=== PATIENT | female | born 1985 | race Two or more races ===

== ENCOUNTER → 2019-02-25 11:52 | Outpatient (CLI) | payer MEDICAID | END | disposition home or self-care (01) | LOC: D.US 11:52 | PROVIDERS: ATTEND Nurse Practitioner Women's Health | DX: R92.8 Other abnormal and inconclusive findings on diagnostic imaging of breast (principal) ==

== ENCOUNTER 2019-08-21 19:54 | Emergency (ER) | payer SELFPAY ==
[~2019-08-21] VITALS: Ht 162.6 cm; Wt 65.9 kg
[2019-08-21 20:12] VITALS: Ht 162.6 cm; Wt 65.9 kg
[2019-08-21 20:43] LABS: HCG URINE NEGATIVE (NEGATIVE)
[2019-08-21 20:46] LABS: APPEARANCE HAZY (CLEAR); BILIRUBIN NEGATIVE (NEGATIVE); COLOR YELLOW (YELLOW); GLUCOSE NEGATIVE (NEGATIVE); KETONE LARGE mg/dL (NEGATIVE); NITRITE NEGATIVE (NEGATIVE); PROTEIN 1+ mg/dL (NEGATIVE); UROBILINOGEN NORMAL (NORMAL)
[2019-08-21 20:49] LABS: BASOPHILS 0.4 % (0-2); EOSINOPHILS 0 % (0-7); HEMATOCRIT 42.2 % (36.0-48.0); HEMOGLOBIN 14.2 g/dL (12-16); IMMATURE GRANULOCYTES 0.2 % (0-5); LYMPHOCYTES 22.8 % (15-50); MCHC 33.6 g/dL (31.0-37.0); MCV 86.1 fL (80.0-100.0); MEAN PLATELET VOLUME 10.9 fL (7.4-10.4); MONOCYTES 13.3 % (2-11); NEUTROPHILS 63.3 % (40-80); PLATELET COUNT 241 10x3/uL (130-400); RDW 12.7 % (11.5-14.5); WBC 5.3 10x3/uL (4.8-10.8)
[2019-08-21 20:57] LABS: BACTERIA FEW /hpf (NEGATIVE); EPITHELIAL CELLS 0-5 /hpf (0-5); RED CELLS - URINE 0-5 /hpf (0-5); WHITE CELLS - URINE 0-5 /hpf (NEGATIVE)
[2019-08-21 21:01] LABS: CALC OSMOLALITY 272 mosm/kg (275-300); CALCIUM 8.6 mg/dL (8.5-10.1); CARBON DIOXIDE 19.1 mmol/L (21.0-32.0); CHLORIDE - SERUM 102 mmol/L (98-107); CREATININE - SERUM 0.8 mg/dL (0.6-1.3); GLUCOSE 93 mg/dL (74-106); POTASSIUM - SERUM 3.3 mmol/L (3.5-5.1); SODIUM 137 mmol/L (136-145); UREA NITROGEN 9 mg/dL (7-18); eGFR NON AFRICAN AMERICAN 87 mL/min (90-120)
[2019-08-21 21:07] LABS: ALBUMIN 3.7 g/dL (3.4-5.0); ALKALINE PHOSPHATASE 130 U/L (46-116); ALT (SGPT) 109 U/L (10-68); BILIRUBIN - TOTAL 0.48 mg/dL (0.2-1.3); LIPASE 122 U/L (73-393); PROTEIN - SERUM 7.7 g/dL (6.4-8.2)
[2019-08-21] MEDS ORDERED: ZOFRAN ODT4 MG/UDTAB PO (21:23)
[2019-08-21] MEDS ORDERED: IBUPROFEN800 MG PO (21:23)
[2019-08-21] MEDS ORDERED: TAMIFLU75 MG PO (21:23)
[2019-08-21 22:33] VITALS: BP 118/57
== END 2019-08-21 22:33 | disposition home or self-care (01) ==
LOC: D.ER 19:54
PROVIDERS: Family Medicine
DX: J11.1 Influenza due to unidentified influenza virus with other respiratory manifestations (principal); R52 Pain, unspecified; R11.2 Nausea with vomiting, unspecified

== ENCOUNTER 2019-12-03 23:11 | Emergency (ER) | payer SELFPAY ==
[~2019-12-03 23:11] MED LIST: IBUPROFEN800 MG PO; TAMIFLU75 MG PO; ZOFRAN ODT4 MG/UDTAB PO
[2019-12-03 23:49] VITALS: Ht 162.6 cm
[2019-12-04 00:06] LABS: BASOPHILS 0.3 % (0-2); EOSINOPHILS 5.6 % (0-7); HEMATOCRIT 37.8 % (36.0-48.0); IMMATURE GRANULOCYTES 0.2 % (0-5); LYMPHOCYTES 28.8 % (15-50); MCH 25.9 pg (26.0-34.0); MCHC 31.7 g/dL (31.0-37.0); MCV 81.5 fL (80.0-100.0); MEAN PLATELET VOLUME 10.9 fL (7.4-10.4); MONOCYTES 6.5 % (2-11); NEUTROPHILS 58.6 % (40-80); RBC 4.64 10x6/uL (4.00-5.40); RDW 14.2 % (11.5-14.5)
[2019-12-04 00:07] LABS: PLATELET COUNT 341 10x3/uL (130-400)
[2019-12-04 00:13] LABS: CALC OSMOLALITY 276 mosm/kg (275-300); CALCIUM 9.1 mg/dL (8.5-10.1); CARBON DIOXIDE 24.8 mmol/L (21.0-32.0); CHLORIDE - SERUM 101 mmol/L (98-107); CREATININE - SERUM 0.6 mg/dL (0.6-1.3); GLUCOSE 101 mg/dL (74-106); POTASSIUM - SERUM 3.4 mmol/L (3.5-5.1); SODIUM 138 mmol/L (136-145); UREA NITROGEN 14 mg/dL (7-18); eGFR NON AFRICAN AMERICAN > 90 mL/min (90-120)
[2019-12-04 00:16] LABS: BILIRUBIN NEGATIVE (NEGATIVE); GLUCOSE NEGATIVE (NEGATIVE); HCG URINE NEGATIVE (NEGATIVE); KETONE MODERATE mg/dL (NEGATIVE); NITRITE NEGATIVE (NEGATIVE); UROBILINOGEN NORMAL (NORMAL)
[2019-12-04 00:23] LABS: ALKALINE PHOSPHATASE 115 U/L (30-120); ALT (SGPT) 43 U/L (10-68); BILIRUBIN - TOTAL 1.18 mg/dL (0.2-1.3); LIPASE 123 U/L (73-393); PROTEIN - SERUM 8.1 g/dL (6.4-8.2)
[2019-12-04 00:24] LABS: TROPONIN-I < 0.017 ng/mL (0.000-0.060)
[2019-12-04 00:54] LABS: UDS - AMPHET NEGATIVE QUAL (NEGATIVE); UDS - BARB NEGATIVE QUAL (NEGATIVE); UDS - BENZO NEGATIVE QUAL (NEGATIVE); UDS - COCAINE NEGATIVE QUAL (NEGATIVE); UDS - OPIATE NEGATIVE QUAL (NEGATIVE); UDS - PCP NEGATIVE QUAL (NEGATIVE); UDS - THC NEGATIVE QUAL (NEGATIVE)
[2019-12-04] MEDS ORDERED: OMEPRAZOLE20 M1 PO (02:35)
[2019-12-04 02:44] VITALS: BP 139/100
== END 2019-12-04 02:44 | disposition home or self-care (01) ==
LOC: D.ER 23:11
PROVIDERS: Family Medicine
DX: R10.9 Unspecified abdominal pain (principal); R07.9 Chest pain, unspecified; R91.1 Solitary pulmonary nodule; R11.0 Nausea

== ENCOUNTER 2020-01-13 21:49 | Observation (INO) | payer SELFPAY ==
[~2020-01-13] VITALS: Ht 162.6 cm; Wt 68.0 kg
--- NOTE | ~2020-01-13 | OP ---
PATIENT NAME: ANNIE BECKER MEDICAL RECORD: [id number] LOCATION:[id number] ADMISSION DATE:01/14/20 SURGEON: JG KAY MD DATE OF OPERATION: 01/14/2020 PREOPERATIVE DIAGNOSIS: Acute appendicitis with localized peritonitis. POSTOPERATIVE DIAGNOSIS: Acute appendicitis with localized peritonitis. PROCEDURE: Laparoscopic appendectomy. SURGEON: Jg Kay MD REPORT OF PROCEDURE: The patient's abdomen was prepped and draped in sterile fashion. A skin incision was made on the superior aspect of the umbilicus, 0 Vicryls were placed in the fascia bilaterally and the fascia was incised with 15-blade. I then bluntly entered the peritoneal cavity and placed a 12-mm Paul port. Under direct visualization, a 5 mm trocar was placed in the left lower quadrant and another was placed in the suprapubic region. The patient had some scarring in the pelvis what appeared to be a previous section. The fundus of the uterus was adherent to the anterior abdominal wall. This was protected throughout our trocar placement. We were able to visualize the patient's appendix, which was acutely inflamed with no signs of necrosis or perforation. We dissected out the base of the appendix as it entered the cecum. There was inflammation through the entire length of the appendix up to its base. We made a window in the mesoappendix and transected the mesoappendix with a 45 white load Endo-MAURICE stapler. The base of the appendix was then transected with a 45 blue load Endo-MAURICE stapler. We inspected the staple lines, I could see there was no sign of any bleeding or leakage. The appendix was placed into an Endo Catch bag and then removed through the umbilicus. We irrigated out the abdomen with normal saline. At this point, we then removed the ports and insufflation. The umbilical fascia was closed with interrupted 0 Vicryls times 3. The wound was then irrigated out with normal saline and infused with 10 mL of 0.25% Marcaine with epinephrine. The skin incisions were all closed with subcutaneous 5-0 Monocryl and dressed appropriately. COMPLICATIONS: None. CONDITION: Stable. ANESTHESIA: General endotracheal and local. BLOOD LOSS: Minimal. TRANSINT:[id number] Voice Confirmation ID: [id number] DOCUMENT ID: [id number] JG KAY MD CC: [id number] DICTATION DATE: 01/14/20 1455 MEDIA SALES EXECUTIVE: 01/15/20 0010 DIS IN 01/14/20 [facility] [address] [id number]
[~2020-01-13 21:49] MED LIST changes: +OMEPRAZOLE20 M1 PO
--- NOTE | 2020-01-13 21:58 | NUR ---
CALLED FOR PATIENT IN THE WR, SCREENER ADVISED THAT THE PATIENT WAS IN THE BATHROOM, NOTIFIED THE PIPE BENDING MACHINE OPERATOR TO DIRECT THE PATIENT TO A ROOM WHEN THEY CAOME OUT OF THE BATHROOM.
[2020-01-13 22:18] LABS: BASOPHILS 0.1 % (0-2); CALC OSMOLALITY 268 mosm/kg (275-300); CALCIUM 9.1 mg/dL (8.5-10.1); CHLORIDE - SERUM 100 mmol/L (98-107); CREATININE - SERUM 0.8 mg/dL (0.6-1.3); EOSINOPHILS 0.6 % (0-7); GLUCOSE 115 mg/dL (74-106); HEMATOCRIT 39.3 % (36.0-48.0); HEMOGLOBIN 12.3 g/dL (12-16); IMMATURE GRANULOCYTES 0.3 % (0-5); LYMPHOCYTES 8.9 % (15-50); MCH 24.3 pg (26.0-34.0); MCHC 31.3 g/dL (31.0-37.0); MCV 77.7 fL (80.0-100.0); MEAN PLATELET VOLUME 10.3 fL (7.4-10.4); MONOCYTES 5.3 % (2-11); NEUTROPHILS 84.8 % (40-80); PLATELET COUNT 370 10x3/uL (130-400); POTASSIUM - SERUM 3.4 mmol/L (3.5-5.1); RBC 5.06 10x6/uL (4.00-5.40); RDW 14.8 % (11.5-14.5); SODIUM 134 mmol/L (136-145); UREA NITROGEN 12 mg/dL (7-18); WBC 17.5 10x3/uL (4.8-10.8); eGFR NON AFRICAN AMERICAN 87 mL/min (90-120)
[2020-01-13 22:24] LABS: ALBUMIN 4.2 g/dL (3.4-5.0); ALKALINE PHOSPHATASE 118 U/L (30-120); ALT (SGPT) 33 U/L (10-68); AMYLASE - SERUM 48 U/L (25-115); BILIRUBIN - TOTAL 1.04 mg/dL (0.2-1.3); LIPASE 79 U/L (73-393); MAGNESIUM - SERUM 2.2 mg/dL (1.8-2.4); PROTEIN - SERUM 8.7 g/dL (6.4-8.2)
[2020-01-13 22:26] LABS: HCG SERUM NEGATIVE (NEGATIVE)
[2020-01-13 22:36] LABS: BILIRUBIN NEGATIVE (NEGATIVE); GLUCOSE NEGATIVE (NEGATIVE); KETONE LARGE mg/dL (NEGATIVE); NITRITE NEGATIVE (NEGATIVE); SPECIFIC GRAVITY 1.025 (1.005-1.020); UROBILINOGEN NORMAL (NORMAL)
[2020-01-13 22:37] LABS: BACTERIA FEW /hpf (NEGATIVE); RED CELLS - URINE 0-5 /hpf (0-5); WHITE CELLS - URINE 0-5 /hpf (NEGATIVE)
--- NOTE | 2020-01-13 22:44 | NUR ---
PT TO RADIOLOGY.
--- NOTE | 2020-01-13 23:02 | NUR ---
PT RETURNED FROM RADIOLOGY.
[2020-01-13 23:46] LABS: APTT 30.9 SECONDS (22.8-39.4); INR 1.05 (0.85-1.17); PROTIME 13.6 SECONDS (11.6-15.0)
--- NOTE | 2020-01-14 00:05 | NUR ---
PT AMBULATED TO RESTROOM INDEPENDENTLY.
[2020-01-14] MEDS ORDERED: ACETAMINOPHEN325 MG PO (01:03)
[2020-01-14 01:04] VITALS: BP 128/59; BMI 25.8
[2020-01-14] MEDS ORDERED: MULTI-DAY VITAM1 TAB PO (01:04)
[2020-01-14 04:00] VITALS: BP 113/80
[2020-01-14 06:48] LABS: BASOPHILS 0.1 % (0-2); EOSINOPHILS 4.4 % (0-7); HEMATOCRIT 33.6 % (36.0-48.0); HEMOGLOBIN 10.5 g/dL (12-16); IMMATURE GRANULOCYTES 0.2 % (0-5); LYMPHOCYTES 14.4 % (15-50); MCH 24.4 pg (26.0-34.0); MCHC 31.3 g/dL (31.0-37.0); MCV 78.1 fL (80.0-100.0); MEAN PLATELET VOLUME 10.7 fL (7.4-10.4); MONOCYTES 7.2 % (2-11); NEUTROPHILS 73.7 % (40-80); PLATELET COUNT 320 10x3/uL (130-400); RDW 15.1 % (11.5-14.5); WBC 14.5 10x3/uL (4.8-10.8)
[2020-01-14 07:01] LABS: ALBUMIN 3.2 g/dL (3.4-5.0); ALKALINE PHOSPHATASE 86 U/L (30-120); ALT (SGPT) 27 U/L (10-68); BILIRUBIN - TOTAL 1.21 mg/dL (0.2-1.3); CALCIUM 8.2 mg/dL (8.5-10.1); CARBON DIOXIDE 23.2 mmol/L (21.0-32.0); CHLORIDE - SERUM 103 mmol/L (98-107); CREATININE - SERUM 0.6 mg/dL (0.6-1.3); GLUCOSE 101 mg/dL (74-106); POTASSIUM - SERUM 3.2 mmol/L (3.5-5.1); PROTEIN - SERUM 6.8 g/dL (6.4-8.2); SODIUM 135 mmol/L (136-145); eGFR NON AFRICAN AMERICAN > 90 mL/min (90-120)
[2020-01-14 07:06] LABS: CALC OSMOLALITY 267 mosm/kg (275-300); UREA NITROGEN 8 mg/dL (7-18)
[2020-01-14 08:00] VITALS: BP 131/86
--- NOTE | 2020-01-14 09:00 | NUR ---
ALERT AND ORIENTED X4 WITH HERE TO ASSSIST WITH TRANSLATION. CONSCENTS SIGNED RLQ ABDOMINAL PAIN NOTED WITH BOWEL SOUNDS NOTED X4. DENIES ANY PAIN OR DISCOMFORT AT THIS TIME. ENCOURAGED TO USE CALL LIGHT FOR ASSIST.
[2020-01-14 13:09] VITALS: Ht 162.6 cm; Wt 68.0 kg
--- NOTE | 2020-01-14 13:47 | NUR ---
PATIENT PREOPPED AND SENT TO SURGERY. STABLE AT TIME OF DEPARTURE
[2020-01-14] MEDS ORDERED: HYDROCODON-ACE1 EA10 PO (14:50)
[2020-01-14 15:47] VITALS: BP 131/80
--- NOTE | 2020-01-14 15:51 | NUR ---
PATIENT RECEIVED BACK TO ROOM AND EASY TO AROUSE. BANDAGES INTACT TO ABDOMEN.
[2020-01-14] MEDS ORDERED: ULTRAM50 MG PO (16:23)
--- NOTE | 2020-01-14 18:00 | NUR ---
PATIENT VOIDED AND TOLERATED DINNER WELL
--- NOTE | 2020-01-14 18:35 | NUR ---
IV DISCONTINUED AND VERBALIZED UNDERSTANDING OF DISCHARGE INSTRUCTIONS. STABLE AT TIME OF DEPARTURE.
== END 2020-01-14 18:35 | disposition home or self-care (01) ==
LOC: D.ER 21:49 → D.MS 01-14 00:01 → OBSVTIME 01-14 00:01 → D.MS 01-14 00:01
PROVIDERS: Family Medicine; ADMIT Surgery; ATTEND Surgery
DX: K35.30 Acute appendicitis with localized peritonitis, without perforation or gangrene (principal)

== ENCOUNTER 2020-02-08 23:19 | Emergency (ER) | payer SELFPAY ==
[~2020-02-08] VITALS: Ht 162.6 cm; Wt 68.3 kg
[~2020-02-08 23:19] MED LIST changes: +ACETAMINOPHEN325 MG PO; +HYDROCODON-ACE1 EA10 PO; +MULTI-DAY VITAM1 TAB PO; +ULTRAM50 MG PO
[2020-02-08 23:23] VITALS: Ht 162.6 cm; Wt 68.3 kg
[2020-02-08 23:59] LABS: HEMATOCRIT 37.2 % (36.0-48.0); HEMOGLOBIN 11.6 g/dL (12-16); LYMPHOCYTES 28.3 % (15-50); MCHC 31.2 g/dL (31.0-37.0); MCV 76.9 fL (80.0-100.0); MEAN PLATELET VOLUME 10.7 fL (7.4-10.4); PLATELET COUNT 296 10x3/uL (130-400); RBC 4.84 10x6/uL (4.00-5.40); RDW 16.2 % (11.5-14.5); WBC 10.7 10x3/uL (4.8-10.8)
[2020-02-09 00:09] LABS: BILIRUBIN NEGATIVE (NEGATIVE); GLUCOSE NEGATIVE (NEGATIVE); KETONE NEGATIVE (NEGATIVE); NITRITE NEGATIVE (NEGATIVE); SPECIFIC GRAVITY 1.005 (1.005-1.020); UROBILINOGEN NORMAL (NORMAL)
[2020-02-09 00:11] LABS: BACTERIA FEW /hpf (NEGATIVE); EPITHELIAL CELLS 0-5 /hpf (0-5); RED CELLS - URINE 0-5 /hpf (0-5); WHITE CELLS - URINE NSEEN /hpf (NEGATIVE)
[2020-02-09 00:17] LABS: CALC OSMOLALITY 267 mosm/kg (275-300); CALCIUM 8.8 mg/dL (8.5-10.1); CHLORIDE - SERUM 103 mmol/L (98-107); CREATININE - SERUM 0.7 mg/dL (0.6-1.3); GLUCOSE 88 mg/dL (74-106); POTASSIUM - SERUM 4.2 mmol/L (3.5-5.1); SODIUM 135 mmol/L (136-145); UREA NITROGEN 11 mg/dL (7-18); eGFR NON AFRICAN AMERICAN > 90 mL/min (90-120)
[2020-02-09 00:53] LABS: ALBUMIN 3.8 g/dL (3.4-5.0); ALKALINE PHOSPHATASE 93 U/L (30-120); ALT (SGPT) 35 U/L (10-68); BILIRUBIN - TOTAL 0.56 mg/dL (0.2-1.3); HCG - QUANTITATIVE (MATERNAL) 50220 mIU/mL; PROTEIN - SERUM 7.9 g/dL (6.4-8.2)
[2020-02-09 02:53] VITALS: BP 112/83
== END 2020-02-09 03:28 | disposition home or self-care (01) ==
LOC: D.ER 23:19
PROVIDERS: Family Medicine
DX: O20.0 Threatened abortion (principal); Z3A.01 Less than 8 weeks gestation of pregnancy; R10.30 Lower abdominal pain, unspecified; N93.9 Abnormal uterine and vaginal bleeding, unspecified

== ENCOUNTER 2020-03-11 17:07 | Emergency (ER) | payer MEDICAID ==
[~2020-03-11] VITALS: Ht 162.6 cm; Wt 68.2 kg
[2020-03-11 17:29] VITALS: Ht 162.6 cm; Wt 68.2 kg
[2020-03-11 17:57] LABS: BASOPHILS 0.2 % (0-2); EOSINOPHILS 7.8 % (0-7); HEMATOCRIT 40.6 % (36.0-48.0); HEMOGLOBIN 13.1 g/dL (12-16); IMMATURE GRANULOCYTES 0.3 % (0-5); LYMPHOCYTES 24.8 % (15-50); MCH 24.3 pg (26.0-34.0); MCHC 32.3 g/dL (31.0-37.0); MCV 75.5 fL (80.0-100.0); MEAN PLATELET VOLUME 10.8 fL (7.4-10.4); NEUTROPHILS 59.9 % (40-80); PLATELET COUNT 338 10x3/uL (130-400); RBC 5.38 10x6/uL (4.00-5.40); RDW 17.1 % (11.5-14.5); WBC 12.5 10x3/uL (4.8-10.8)
[2020-03-11 18:03] LABS: BILIRUBIN NEGATIVE (NEGATIVE); GLUCOSE NEGATIVE (NEGATIVE); KETONE NEGATIVE (NEGATIVE); NITRITE NEGATIVE (NEGATIVE); UROBILINOGEN NORMAL (NORMAL)
[2020-03-11 18:04] LABS: CALC OSMOLALITY 262 mosm/kg (275-300); CALCIUM 9.6 mg/dL (8.5-10.1); CARBON DIOXIDE 24.7 mmol/L (21.0-32.0); CHLORIDE - SERUM 100 mmol/L (98-107); CREATININE - SERUM 0.7 mg/dL (0.6-1.3); GLUCOSE 91 mg/dL (74-106); POTASSIUM - SERUM 3.5 mmol/L (3.5-5.1); SODIUM 132 mmol/L (136-145); UREA NITROGEN 8 mg/dL (7-18); eGFR NON AFRICAN AMERICAN > 90 mL/min (90-120)
[2020-03-11 18:08] LABS: BACTERIA MODERATE /hpf (NEGATIVE); RED CELLS - URINE 0-5 /hpf (0-5); WHITE CELLS - URINE 0-5 /hpf (NEGATIVE)
[2020-03-11 18:13] LABS: ALBUMIN 3.6 g/dL (3.4-5.0); ALKALINE PHOSPHATASE 99 U/L (30-120); ALT (SGPT) 34 U/L (10-68); AMYLASE - SERUM 66 U/L (25-115); BILIRUBIN - TOTAL 0.76 mg/dL (0.2-1.3); LIPASE 126 U/L (73-393); PROTEIN - SERUM 8.4 g/dL (6.4-8.2)
[2020-03-11 18:33] LABS: TROPONIN-I < 0.017 ng/mL (0.000-0.060)
[2020-03-11] MEDS ORDERED: MACROBID100 MG PO (20:11)
[2020-03-11 20:43] VITALS: BP 131/83
== END 2020-03-11 20:44 | disposition home or self-care (01) ==
LOC: D.ER 17:07
PROVIDERS: Emergency Medicine
DX: O26.891 Other specified pregnancy related conditions, first trimester (principal); Z3A.10 10 weeks gestation of pregnancy; R10.9 Unspecified abdominal pain; R82.71 Bacteriuria

== ENCOUNTER 2020-03-16 12:06 | Observation (INO) | payer MEDICAID ==
[~2020-03-16] VITALS: Ht 162.6 cm; Wt 67.6 kg
[~2020-03-16 12:06] MED LIST changes: +MACROBID100 MG PO
--- NOTE | 2020-03-16 15:20 | NUR ---
SL STARTED X 2 ATTEMPTS. SUCCESSFUL TO LEFT HAND WITH 10 GAUGE CATHELON. BANANA BAG UP AT 125 ML/HR. SITE CLEAR. PT MARIEL WELL.
--- NOTE | 2020-03-16 15:30 | NUR ---
ROUNDING WITH PATIENT. IV FLUIDS STARTED. IV IN LEFT HAND. SITE WNL. ORIENTATED PATIENT TO ROOM. POTTY HAT PLACED IN BATHROOM WITH INSTRUCTIONS ON OUTPUT. PATIENT DENIES NEEDS AT THIS TIME. CALL LIGHT IN REACH, SIDE RAILS UP X 2.
--- NOTE | 2020-03-16 15:55 | NUR ---
ADMISSION ASSESSMENT COMPLETE. SEE FLOW SHEET. PATIENT REQUESTED [employer] TRANSLATE ON PHONE BE USED WHEN SHE IS UNABLE TO UNDERSTAND. VSS. DENIES PAIN OR NAUSEA AT THIS TIME. CALL LIGHT IN REACH, SIDE RAILS UP X2. PATIENT DENIES NEEDS AT THIS TIME.
[2020-03-16 16:07] VITALS: BP 120/92
--- NOTE | 2020-03-16 16:30 | NUR ---
ROUNDING ON PATIENT. PATIENT TALKING ON PHONE AND DENIES NEEDS AT THIS TIME. CALL LIGHT IN REACH, SIDE RAILS UP X 2.
[2020-03-16 16:39] VITALS: BP 137/93; BMI 25.6
--- NOTE | 2020-03-16 17:34 | NUR ---
ROUNDING WITH PATIENT. REGLAN AND PROTONIX GIVEN PER ORDER. EDUCATION GIVEN TO PATIENT ON BOTH MEDICATIONS PRIOR TO IV PUSH. PATIENT TOLERATED MEDS. DENIES ANY NEEDS AT THIS TIME. CALL LIGHT IN REACH, SIDE RAILS UP X2.
--- NOTE | 2020-03-16 17:35 | NUR ---
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 STATES SHE FEELS REALLY HOT. VSS TEMP 98.8F, BLOOD PRESSURE 129/73, RESP 20 AND HR 108. TEMP IN ROOM SET AT 80 DEGREES, TURNED THERMOSTAT DOWN TO 65. PATIENT LAYING IN BED WITHOUT BLANKETS. PATIENT DENIES ANY CHEST PAIN, FEELING LIKE HER HEART IS RACING, FEELING FLUSHED OR ANY SHORTNESS OF BREATH. STATES SHE FEELS LIKE THE ROOM IS TO HOT. WILL CONTINUE TO MONITOR. CALL LIGHT IN REACH, SIDE RAILS UP X 2.
--- NOTE | 2020-03-16 17:50 | NUR ---
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 PATIENT STATES HAD BOWEL MOVMENT BUT DID NOT URINATE. POTTY HAT EMPTY. SOCKS GIVEN TO PATIENT TO WEAR WHEN UP. EDUCATION PROVIDED TO HER ON SOCKS. PATIENT STATES SHE FEELS BETTER AND FEELS LIKE SHE IS COOLING OFF. DENIES NEEDS AT THIS TIME. CALL LIGHT IN REACH, SIDE RAILS UP X 2.
--- NOTE | 2020-03-16 18:33 | NUR ---
ROUNDING WITH PATIENT. REQUESTED BLINDS CLOSED. DENIES NAY NEEDS AT THIS TIME. CALL LIGHT IN REACH, SIDE RAILS UP X2.
[2020-03-16 19:25] VITALS: BP 116/79
--- NOTE | 2020-03-16 19:25 | NUR ---
ASSESSMENT PER FLOW SHEET, VS OBTAINED, IV IN LEFT HAND INTACT WITH NO REDNESS OR EDEMA INFUSING VIA PUMP BANANA BAG AT 125 ML/HR, SEE EMAR, S/O IN ROOM AT THIS TIME TO TRANSLATE, PT KNOWS SOME YEMENI, PT REPORTS FLATUS, BM, BUT REPORTS SHE HAS NOT VOIDED YET, PT INST TO USE CALL LIGHT WHEN NEEDING ASSISTANCE TO GET UP, PT VERBALIZES UNDERSTANDING, PT DENIES ANY NAUSEA OR VOMITING, PT INST ON NPO, PT DENIES NEEDS OR PAIN AT THIS TIME, S/O REPORTS THAT HE WILL NOT BE STAYING BECAUSE HE NEEDED TO HOME BECAUSE OF THE OTHER CHILDREN
--- NOTE | 2020-03-16 20:35 | NUR ---
PT RESTING WITH EYES CLOSED, RESP QUIET, NO DISTRESS NOTED, LEFT UNDISTURBED AT THIS TIME
--- NOTE | 2020-03-16 21:42 | NUR ---
PT GAME TRAPPER LIGHT, PT REQUESTED AND PROVIDED TOOTHBRUSH AND TOOTHPASTE, PT UP TO SINK PER SELF, GAIT STEADY, PT DENIES ANY NAUSEA OR PAIN, DENIES FURTHER NEEDS
--- NOTE | 2020-03-16 22:18 | NUR ---
PT BACK IN BED AT THIS TIME RESTING
--- NOTE | 2020-03-16 23:57 | NUR ---
BANANA BAG FINISHED INFUSING, NS HUNG FOR KVO, PT UP AND VOIDED 150 MLS OF DARK YELLOW URINE BY SELF WITH NO DIFFICULTY, PT DENIES NEEDS, N/V, OR PAIN AT THIS TIME
--- NOTE | 2020-03-17 00:30 | NUR ---
PT RESTING WITH EYES CLOSED, RESP QUIET, NO DISTRESS NOTED, LEFT UNDISTURBED AT THIS TIME
[2020-03-17 01:36] VITALS: BP 129/90
--- NOTE | 2020-03-17 01:36 | NUR ---
PT AWAKE, REPORTS FEELING NAUSEATED, PT DID NOT VOMIT, JUST GAGGED AND SPIT ALITTLE, ADM JOEL SENIOR PER MD ORDERS, SEE EMAR, PT REPORTS VOIDING, EMPTIED 100MLS OF DARK YELLOW URINE FROM MAINE HAT, PT DENIES NEEDS
--- NOTE | 2020-03-17 02:33 | NUR ---
PT RESTING WITH EYES CLOSED, RESP QUIET, NO DISTRESS NOTED, LEFT UNDISTURBED AT THIS TIME
[2020-03-17 04:21] VITALS: BP 118/81
--- NOTE | 2020-03-17 04:21 | NUR ---
PT RESTING WITH EYES CLOSED, AROUSES TO SOFT VERBAL STIMULATION, VS OBTAINED, PUMP CLEARED, PT DENIES PAIN, OR N/V
--- NOTE | 2020-03-17 06:23 | NUR ---
PT AWAKE, REQUESTS SOMETHING TO EAT, INFORMED PT TO LET DR CARTAGENA KNOW WHEN SHE MAKES HER ROUNDS, OR, IF SHE DOESN'T COME THIS MORNING, I WILL HAVE THE DAY SHIFT NURSE CALL HER OFFICE, PT VERBALIZES UNDERSTANDING AND GIVES ME A THUMBS UP, PT DENIES FURTHER NEEDS
--- NOTE | 2020-03-17 07:30 | NUR ---
ROUNDING WITH PATIENT. PATIENT DENIES NAUSEA OR PAIN AT THIS TIME. REQUESTING TO EAT. NURSE WILL TALK TO DR. CARTAGENA WHEN SHE MAKES ROUNDS. PATIENT DENIES ANY FURTHER NEEDS. WHITE BOARD UPDATED WITH DATE AND NURSES NAME. CALL LIGHT IN REACH, SIDE RAILS UP X 2.
[2020-03-17 07:41] VITALS: BP 141/94
--- NOTE | 2020-03-17 08:00 | NUR ---
ASSESSMENT COMPLETE. VSS. IV LEFT HAND WNL. PATIENT DENIES NAUSEA OR PAIN AT THIS TIME. CALL LIGHT IN REACH, SIDE RAILS UP X 2.
--- NOTE | 2020-03-17 08:35 | NUR ---
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 STATES SHE IS HUNGRY AND WOULD LIKE TO EAT. DR. CARTAGENA ON FLOOR AND NOTIFIED. DR CARTAGENA ALSO NOTIFIED ON PATIENTS BLOOD PRESSURE THIS AM. SHE WILL BE ROUNDING IN A FEW MINUTES. CALL LIGHT IN REACH, SIDE RAILS UP X2. IN ROOM.
--- NOTE | 2020-03-17 08:44 | NUR ---
DR CARTAGENA ROUNDKAMALJIT REQUESTING CALL WITH NEXT BLOOD PRESSURE.
--- NOTE | 2020-03-17 09:13 | NUR ---
ROUNDING WITH PATIENT. PATIENT DIET ADVANCED TO CLEAR LIQUID. PATIENT SITTING UP DRINKING CLEAR LIQUID. EDUCATED PATIENT ON CLEAR LIQUID DIET AND IMPORTANCE OF STARTING SLOW. PATIENT VERBALIZED UNDERSTANDING. IN ROOM TRANSLATING. PATIENT DENIES ANY NEEDS AT THIS TIME. CALL LIGHT IN REACH, SIDE RAILS UP X 2.
--- NOTE | 2020-03-17 09:32 | NUR ---
REGLAN GIVEN IVP. PATIENT TOLERATED WELL. PATIENT TOLERATING CLEAR LIQUIDS AT THIS TIME. DENIES NEEDS. CALL LIGHT IN REACH, SIDE RAILS UP X2. IN ROOM.
--- NOTE | 2020-03-17 10:54 | NUR ---
ROUNDING WITH PATIENT. PATIENT RESTING IN BED. DENIES NAUSEA OR NEEDS AT THIS TIME. CALL LIGHT IN REACH, SIDE RAILS UP X2.
--- NOTE | 2020-03-17 12:06 | NUR ---
ROUNDING WITH PATIENT. PATIENT DENIES NAUSEA. VOIDED 300CC DARK YELLOW URINE. PATIENT TOLERATING LIQUIDS REQUESTING TO HAVE FOOD. WILL ASK DR CARTAGENA WHEN CALLING HER WITH BLOOD PRESSURE. CALL LIGHT IN REACH. SIDE RAILS UP X2. PATIENT SITTING UP IN BED DRINKING CLEAR LIQUIDS.
[2020-03-17 12:45] VITALS: BP 135/101
--- NOTE | 2020-03-17 12:50 | NUR ---
DR CARTAGENA CALLED WITH UPDATED BLOOD PRESSURE AND CONTINUED C/O NAUSEA. 135/[address] CARTAGENA WILL PL[address] ORDER FOR PO BLOOD PRESSURE MEDICATIONS AND CHANGE REGLAN TO EVERY 6 HOURS.
[2020-03-17 13:59] VITALS: Ht 162.6 cm; Wt 67.6 kg
--- NOTE | 2020-03-17 14:00 | NUR ---
ROUNDING WITH PATIENT. AT BEDSIDE TO TRANSLATE. REGLAN GIVE IVP. PATIENT TOLERATED WELL. EDUCATION PROVIDED ON THE NORMODYNEL/TRANDATE 100MG TAB. PATIENT STATES HER BLOOD PRESSURE IS HIGH DUE TO NOT EATING. IF SHE COULD HAVE SOME FOOD SHE WOULD FEEL BETTER AND HER BLOOD PRESSURE WILL GO DOWN. SHE STATES SHE KNOWS HER BODY AND KNOWS THAT FOOD WILL MAKE IT BETTER. OFFERED TO CALL DR CARTAGENA TO SEE IF WE COULD GET AN ADVANCE DIET ORDER.
--- NOTE | 2020-03-17 14:05 | NUR ---
DR DEY CALLED. OK TO ADVANCE TO BRAT DIET. ORDER PLACED IN COMPUTER. PATIENT TO TRY BRAT DIET AND RECHECK BLOOD PRESSURE THIS AFTERNOON. IF BLOOD PRESSURE CONTINUES TO BE ELEVATED RECOMMENDS TO TAKE BLOOD PRESSURE MEDICINE.
--- NOTE | 2020-03-17 14:10 | NUR ---
PATIENT AND UPDATED ON DR ESPINOZA ORDER FOR BRAT DIET AND IF ELEVATED BLOOD PRESSURE CONTINUES TO TAKE BLOOD PRESSURE MEDICATION. AND PATIENT EDUCATED ON BRAT DIET AND BOTH VERBALIZED UNDERSTANDING. WILL RECHECK BLOOD PRESSURE AT 4PM. UA COLLECTED AND SENT TO LAB. PATIENT DENIES ANY FURTHER NEEDS AT THIS TIME. CALL LIGHT IN REACH, SIDE RAILS UP X 2.
[2020-03-17 14:32] LABS: BILIRUBIN NEGATIVE (NEGATIVE); GLUCOSE NEGATIVE (NEGATIVE); KETONE MODERATE mg/dL (NEGATIVE); NITRITE NEGATIVE (NEGATIVE); UROBILINOGEN NORMAL (NORMAL)
[2020-03-17 14:35] LABS: BASOPHILS 0.3 % (0-2); EOSINOPHILS 6.3 % (0-7); HEMATOCRIT 34.6 % (36.0-48.0); HEMOGLOBIN 11.3 g/dL (12-16); IMMATURE GRANULOCYTES 0.2 % (0-5); LYMPHOCYTES 31.1 % (15-50); MCH 24.5 pg (26.0-34.0); MCHC 32.7 g/dL (31.0-37.0); MCV 74.9 fL (80.0-100.0); MEAN PLATELET VOLUME 10.4 fL (7.4-10.4); MONOCYTES 5.3 % (2-11); NEUTROPHILS 56.8 % (40-80); PLATELET COUNT 294 10x3/uL (130-400); RBC 4.62 10x6/uL (4.00-5.40); RDW 17.2 % (11.5-14.5); WBC 9.6 10x3/uL (4.8-10.8)
[2020-03-17 14:50] LABS: ALKALINE PHOSPHATASE 92 U/L (30-120); ALT (SGPT) 26 U/L (10-68); BILIRUBIN - TOTAL 0.65 mg/dL (0.2-1.3); CALC OSMOLALITY 266 mosm/kg (275-300); CALCIUM 8.5 mg/dL (8.5-10.1); CARBON DIOXIDE 20.8 mmol/L (21.0-32.0); CHLORIDE - SERUM 103 mmol/L (98-107); CREATININE - SERUM 0.6 mg/dL (0.6-1.3); GLUCOSE 95 mg/dL (74-106); LDH 131 U/L (81-234); SODIUM 135 mmol/L (136-145); UREA NITROGEN 4 mg/dL (7-18); eGFR NON AFRICAN AMERICAN > 90 mL/min (90-120)
--- NOTE | 2020-03-17 15:21 | NUR ---
ROUNDING WITH PATIENT. PATIENT RESTING IN BED. EMILIA NEEDS OR NAUSEA AT THIS TIME. CALL LIGHT IN REACH. SIDE RAILS UP X 2.
[2020-03-17 16:17] VITALS: BP 129/77
--- NOTE | 2020-03-17 16:20 | NUR ---
ROUDNING WITH PATIENT. PATIENT DENIES NAUSEA. STATES SHE FEELS BETTER AFTER EATING. DENIES NEEDS. CALL LIGHT IN REACH. SIDE RAILS UP X 2.
--- NOTE | 2020-03-17 16:48 | NUR ---
PT STATES SHE IS FEELING MUCH BETTER, AND WANTS TO GO HOME. PHONE CALL MADE TO DR. CARTAGENA, REPORT GIVEN TO MD OF PT'S REQUEST. TELEPHONE ORDER RECEIVED TO DISCHARGE PT HOME TO FOLLOW UP IN CLINIC ON FRIDAY MORNING TO SEE DR. CARTAGENA, DR. CARTAGENA WILL ESCRIPT REGLAN, INSTRUCT PT TO TAKE REGLAN AROUND THE CLOCK FOR 2 DAYS, AND THEN TAKE NEEDED, AND TO TAKE PROTONIX EVERY DAY UNTIL SEEN BY DR. CARTAGENA. REPORT GIVEN TO Naomy JUAREZ RN.
--- NOTE | 2020-03-17 17:46 | NUR ---
IV D/C'D WITH TIP INTACT. BAND AIDE APPLIED TO SITE.
--- NOTE | 2020-03-17 18:24 | NUR ---
PATIENT DISCHARGED HOME VIA WHEELCHAIR TO PRIVATE CARE DRIVEN BY . DISCHARGE INSTRUCTIONS GIVEN TO PATIENT AND . BOTH VERBALIZED UNDERSTANDING. EDUCATION PRINTED IN BOTH IRISH AND EQUATORIAL GUINEAN. PATIENT AND DENY ANY QUESTIONS AT THIS TIME.
== END 2020-03-17 18:27 | disposition home or self-care (01) ==
LOC: D.ER 12:06 → D.WS 16:01 → OBSVTIME 16:05 → D.WS 03-17 18:27
PROVIDERS: ADMIT Student in an Organized Health Care Education/Training Program; ATTEND Student in an Organized Health Care Education/Training Program
DX: O21.0 Mild hyperemesis gravidarum (principal); Z3A.12 12 weeks gestation of pregnancy

== ENCOUNTER → 2020-04-14 10:11 | Outpatient (CLI) | payer MEDICAID ==
[2020-03-17 13:59] VITALS: BMI 25.5
== END | disposition home or self-care (01) ==
LOC: D.US 10:11
PROVIDERS: ATTEND Student in an Organized Health Care Education/Training Program
DX: N63.11 Unspecified lump in the right breast, upper outer quadrant (principal)

== ENCOUNTER → 2020-04-28 10:18 | Outpatient (CLI) | payer MEDICAID ==
[2020-03-17 13:59] VITALS: BMI 25.5
== END | disposition home or self-care (01) ==
LOC: D.US 10:00
PROVIDERS: ATTEND Student in an Organized Health Care Education/Training Program
DX: N63.11 Unspecified lump in the right breast, upper outer quadrant (principal)